=== PATIENT | male | born 1990 | race African-American/Black ===

== ENCOUNTER 2017-02-17 12:04 | Emergency (ER) | payer OTHER ==
[~2017-02-17] VITALS: Ht 177.8 cm; Wt 70.3 kg
[2017-02-17 15:44] VITALS: BP 122/72
== END 2017-02-17 15:44 | disposition home or self-care (01) ==
LOC: ER 12:04
DX: J02.0 Streptococcal pharyngitis (principal)

== ENCOUNTER 2020-12-01 10:55 | Emergency (ER) | payer OTHER ==
[~2020-12-01] VITALS: Ht 180.3 cm; Wt 72.6 kg
[2020-12-01 12:23] LABS: URINE BILIRUBIN NEGATIVE (Negative); URINE BLOOD 2+ (Negative); URINE CLARITY CLEAR; URINE COLOR RED; URINE GLUCOSE-RANDOM* 1+ (Negative); URINE KETONES TRACE (Negative); URINE LEUKOCYTES-REFLEX TRACE (Negative); URINE PROTEIN (DIPSTICK) 3+ (Negative); URINE UROBILINOGEN >= 8.0 E.U./dl (0.2-1.0)
[2020-12-01 12:25] LABS: URINE NITRITE-REFLEX POSITIVE (Negative)
[2020-12-01 12:35] LABS: BACTERIA-REFLEX 1-9 Few /HPF (None Seen); CASTS None Seen /LPF (None Seen); CRYSTALS None Seen /LPF (None Seen); SQUAMOUS 0-3 Few /LPF (0-3); URINE WBC-REFLEX None Seen /HPF (0-5)
[2020-12-01] MEDS ORDERED: BACTRIM DS TAB1 EACH PO (13:17)
[2020-12-01 14:50] VITALS: BP 120/79
== END 2020-12-01 14:51 | disposition home or self-care (01) ==
LOC: ER 10:55
PROVIDERS: Nurse Practitioner
DX: N39.0 Urinary tract infection, site not specified (principal)